=== PATIENT | male | born 1990 | race Caucasian/White ===

== ENCOUNTER 2016-10-11 10:54 | Inpatient (IN) ==
[2016-10-11] MEDS ORDERED: 0.9 % Sodium Chloride 1,000 ML IVC ONE (11:11)
--- NOTE | 2016-10-11 11:15 | Emergency Department Note ---
Disposition Clinical Impression: New onset atrial fibrillation Disposition: Admitted As Inpatient Condition: Good Forms: ED Satisfaction Letter Arrhythmia/Palpitations HPI - General Chief Complaint: ED Arrhythmia/Palpitations Stated Complaint: New onset A-fib Source: patient, family Limitations: no limitations Nursing Notes Reviewed: Yes Vital Signs Reviewed: Yes - History of Present Illness Pt Subjective Complaint: "heart racing" Onset (ago): day(s) (5) Duration: constant Severity: severe Context: occurred during rest Associated symptoms: Reports: denies other symptoms - Related Data Allergies Allergy/AdvReac Type Severity Reaction Status Date / Time No Known Allergies Allergy Verified 10/11/16 11:35 All systems ED: reviewed and negative except as stated. Constitutional: Denies: fever, chills, weakness Cardiovascular: Reports: palpitations Past Medical History - Past Medical History Source: patient, obtained from family, nursing notes reviewed Medical history: Reports: no medical history Psychiatric history: Reports: no psych history - Social History Smoking Status: Never smoker Alcohol use: Reports: occasionally Drug use: Reports: none Physical Exam - General Limitations: no limitations General appearance: alert, in no apparent distress - Head Head exam: atraumatic, normocephalic, normal inspection - Eye Eye exam: Present: normal appearance, PERRL, EOMI - Expanded Eye Exam Pupils: Left: reactive - ENT ENT exam: normal exam, normal oropharynx, mucous membranes moist - Expanded ENT Exam External ear exam: Present: normal external inspection Mouth exam: Present: normal external inspection Teeth exam: Present: normal inspection Throat exam: Present: normal inspection - Neck Neck exam: Present: normal inspection, full ROM, trachea midline - Chest Chest inspection: Present: normal inspection, symmetric chest wall rise - Respiratory Respiratory exam: Present: normal lung sounds bilaterally - Cardiovascular Cardiovascular exam: Present: tachycardia, irregular rhythm - Abdominal Exam Abdominal exam: Present: soft, Non-Tender. Absent: tenderness, distention, guarding, rebound, rigidity - Extremities Exam Extremities exam: Present: normal inspection, full ROM. Absent: tenderness, pedal edema - Expanded Upper Extremity Exam Shoulder exam: Present: normal inspection, full ROM Arm exam: Present: normal inspection, full ROM Elbow exam: Present: normal inspection, full ROM Forearm/Wrist exam: Present: normal inspection, full ROM Hand exam: Present: normal inspection, full ROM Vascular exam: Normal: capillary refill, radial pulse - Expanded Lower Extremity Exam Hip/Pelvis exam: Present: normal inspection, full ROM Upper leg exam: Present: normal inspection, full ROM Knee exam: Present: normal inspection, full ROM Lower leg exam: Present: normal inspection, full ROM Ankle exam: Present: normal inspection, full ROM Foot/toe exam: Present: normal inspection, full ROM Neurovascular/Tendon exam: Absent: motor deficit, sensory deficit, tendon deficit - Back Exam Back exam: Present: normal inspection, full ROM. Absent: tenderness - Neurological Exam Neurological exam: Present: alert, oriented X3 - Expanded Neurological Exam Patient oriented to: Present: person, place, time Coma Scale Eye Opening: Spontaneous Coma Scale Motor Response: Obeys Commands Coma Scale Verbal Response: Oriented Coma Scale Total: 15 - Psychiatric Psychiatric exam: Present: normal affect, normal mood - Skin Skin exam: Present: warm, dry, intact, normal color Course - Consultations Consultation #1: dr. dinh agrees admit cardizem heparin, will consult Time: 12:42 Vital Signs Temperature 98.2 F 10/11/16 11:04 Pulse Rate 170 10/11/16 11:04 Respiratory Rate 16 10/11/16 11:04 Blood Pressure 113/97 10/11/16 11:04 O2 Sat by Pulse Oximetry 98 10/11/16 11:04 Temperature 98.2 F 10/11/16 11:04 Pulse Rate 128 10/11/16 11:32 Respiratory Rate 16 10/11/16 11:32 Blood Pressure 126/68 10/11/16 11:32 O2 Sat by Pulse Oximetry 100 10/11/16 11:32 Oxygen Delivery Oxygen Delivery Room Air Arrhythmia/Palpitations - Differential Diagnosis Differential Diagnosis: Likely: sinus tachycardia, artial arrhythmia, supraventricular tachycardia, ventricular tachycardia, WPW, metabolic/ electrolyte disturbance - Medical Records Medical records reviewed: Yes I reviewed the patient's medical records. - Lab Data Lab results reviewed: Yes I reviewed the patient's lab results. Result diagrams: 10/11/16 11:15 10/11/16 11:15 Lab Results 10/11/16 10/11/16 10/11/16 Range/Units 11:15 11:15 11:15 WBC 7.8 (4.3-11.1) K/mcL RBC 5.31 (4.19-5.50) M/mcL Hgb 15.5 (12.9-16.9) g/dL Hct 46.9 (37.5-50.1) % MCV 88.3 (83.0-100.0) fL MCH 29.2 (28.0-33.3) pg MCHC 33.0 (31.6-35.5) g/dL RDW 12.3 (11.5-14.5) % Plt Count 237 (140-400) K/mcL MPV 9.0 L (9.4-12.4) fL Immature Gran % 0.6 (0-4) % Seg Neutrophils % 68.3 % Lymphocytes % 19.2 % Monocytes % 9.5 % Eosinophils % 1.9 % Basophils % 0.5 % Neutrophils # 5.3 (1.6-8.9) K/mcL Lymphocytes # 1.5 (0.6-4.6) K/mcL Monocytes # 0.7 (0.0-1.3) K/mcL Eosinophils # 0.2 (0.0-0.6) K/mcL Basophils # 0.0 (0.0-0.2) K/mcL PT 11.4 (9.4-12.1) Seconds INR 1.1 APTT 29.8 (26.0-36.0) Seconds D-Dimer (0-500) ng/mLFEU Sodium 139 (136-145) mEq/L Potassium 4.2 (3.5-4.5) mEq/L Chloride 105 (98-109) mEq/L Carbon Dioxide 25 (19-29) mEq/L BUN 12 (8-26) mg/dL Creatinine 0.90 (0.72-1.25) mg/dL Est GFR ( Amer) > 60 (> 60) Est GFR (Non-Af Amer) > 60 (> 60) BUN/Creatinine Ratio 13 (6-26) Glucose 88 (70-99) mg/dL Calculated Osmolality 287 (280-300) Calcium 9.9 (8.6-10.8) mg/dL Magnesium 1.9 (1.6-2.6) mg/dL Troponin I (0-0.03) ng/mL TSH 0.576 (0.350-4.840) mcIU/mL 10/11/16 10/11/16 Range/Units 11:15 11:15 WBC (4.3-11.1) K/mcL RBC (4.19-5.50) M/mcL Hgb (12.9-16.9) g/dL Hct (37.5-50.1) % MCV (83.0-100.0) fL MCH (28.0-33.3) pg MCHC (31.6-35.5) g/dL RDW (11.5-14.5) % Plt Count (140-400) K/mcL MPV (9.4-12.4) fL Immature Gran % (0-4) % Seg Neutrophils % % Lymphocytes % % Monocytes % % Eosinophils % % Basophils % % Neutrophils # (1.6-8.9) K/mcL Lymphocytes # (0.6-4.6) K/mcL Monocytes # (0.0-1.3) K/mcL Eosinophils # (0.0-0.6) K/mcL Basophils # (0.0-0.2) K/mcL PT (9.4-12.1) Seconds INR APTT (26.0-36.0) Seconds D-Dimer < 215 (0-500) ng/mLFEU Sodium (136-145) mEq/L Potassium (3.5-4.5) mEq/L Chloride (98-109) mEq/L Carbon Dioxide (19-29) mEq/L BUN (8-26) mg/dL Creatinine (0.72-1.25) mg/dL Est GFR ( Amer) (> 60) Est GFR (Non-Af Amer) (> 60) BUN/Creatinine Ratio (6-26) Glucose (70-99) mg/dL Calculated Osmolality (280-300) Calcium (8.6-10.8) mg/dL Magnesium (1.6-2.6) mg/dL Troponin I 0.00 (0-0.03) ng/mL TSH (0.350-4.840) mcIU/mL - Radiology Data Radiology results reviewed: Yes I reviewed the patient's radiology results. - EKG Data EKG attestation: Yes I reviewed and interpreted this EKG. Rate: tachycardia Rhythm: A.Fib [place]/QRS: normal Interpretation: nonspecific ST-T wave changes Critical Care Time Critical Care Time: Yes Total Critical Care Time: 35 Attestation: 35 Critical care performed: Time is exclusive of separately billable procedures. Time includes: direct patient care, patient reassessment, coordination of patient care, interpretation of data (laboratory data, radiology data, and respiratory data), review of patient's medical records, medical consultation and documentation of patient care. Procedures included in critical care time: Procedures excluded from critical care time:
[2016-10-11 11:31] LABS: Basophils % 0.5 %; Eosinophils # 0.2 K/mcL (0.0-0.6); Eosinophils % 1.9 %; Hematocrit 46.9 % (37.5-50.1); Hemoglobin 15.5 g/dL (12.9-16.9); Immature Granulocytes % 0.6 % (0-4); Lymphocytes # 1.5 K/mcL (0.6-4.6); Lymphocytes % 19.2 %; Mean Corpuscular Hemoglobin 29.2 pg (28.0-33.3); Mean Corpuscular Volume 88.3 fL (83.0-100.0); Monocytes # 0.7 K/mcL (0.0-1.3); Monocytes % 9.5 %; Neutrophils # 5.3 K/mcL (1.6-8.9); Platelet Count 237 K/mcL (140-400); Red Blood Count 5.31 M/mcL (4.19-5.50); Red Cell Distribution Width 12.3 % (11.5-14.5); Segmented Neutrophils % 68.3 %
[2016-10-11 11:33] LABS: INR 1.1; Prothrombin Time 11.4 Seconds (9.4-12.1)
[2016-10-11 11:36] LABS: Activated Partial Thrombo Time 29.8 Seconds (26.0-36.0)
[2016-10-11 11:44] LABS: BUN/Creatinine Ratio 13 (6-26); Blood Urea Nitrogen 12 mg/dL (8-26); Calcium 9.9 mg/dL (8.6-10.8); Carbon Dioxide 25 mEq/L (19-29); Chloride 105 mEq/L (98-109); Glucose 88 mg/dL (70-99); Magnesium 1.9 mg/dL (1.6-2.6); Osmolality,Calculated 287 (280-300); Potassium 4.2 mEq/L (3.5-4.5); Sodium 139 mEq/L (136-145); eGFR For African Americans > 60 (> 60); eGFR For Non-African Americans > 60 (> 60)
[2016-10-11 12:07] LABS: Thyroid Stimulating Hormone 0.576 mcIU/mL (0.350-4.840)
[2016-10-11] MEDS ORDERED: *HR* Heparin 5,000 UNIT/ML VIAL IVP PRN (12:24)
[2016-10-11] MEDS ORDERED: *HR* Heparin 5,000 UNIT/ML VIAL IVP ONE (12:24)
[2016-10-11] MEDS ORDERED: Aspirin 81 MG TAB.CHEW PO ONE (12:45)
[2016-10-11] MEDS: Heparin 25,000 UNIT/500 ML D5W 25,000 UNIT/500 ML MLS IVC SCH (13:39)
[2016-10-11 14:17] LABS: Bilirubin,Urine Negative (Negative); Blood,Urine Negative (Negative); Clarity,Urine Clear (Clear); Color,Urine Yellow (Yellow); Glucose,Urine (UA) Normal (Normal); Ketones,Urine Negative (Negative); Leukocyte Esterase,Urine Negative (Negative); Nitrite,Urine Negative (Negative); Protein,Urine Negative (Neg-Trace); Specific Gravity,Urine 1.007 (1.010-1.025); Urobilinogen,Urine Normal (Normal)
[2016-10-11 14:22] LABS: Amphetamine Screen,Urine Negative ng/mL (Cutoff=1000); Barbiturate Screen,Urine Negative ng/mL (Cutoff=200); Benzodiazepines Screen,Urine Negative ng/mL (Cutoff=200); Cannabinoid Screen,Urine Negative ng/mL (Cutoff = 50); Cocaine Screen,Urine Negative ng/mL (Cutoff= 300); Opiate Screen,Urine Negative ng/mL (Cutoff=300); Phencyclidine Screen,Urine Negative ng/mL (Cutoff=25)
--- NOTE | 2016-10-11 15:38 | Cardiology Consult Note ---
Date of Encounter: 10/11/16 Time of Encounter: 15:33 Assessment and Plan (1) New onset atrial fibrillation Current Visit: Yes Status: Acute New onset atrial fibrillation. HR up to 183 per documentation. Continue cardizem gtt overnight. If he converts to NSR change to oral cardizem. Check TTE. TSH normal. He is a CHADS VASc=0. Start asa 81 mg daily at discharge. Continue heparin gtt for now. Discussion w patient/family: The assessment and plan as outlined above was discussed with the patient and/or family members who expressed understanding and agreement. All questions were answered. Thank you for involving us in the care of your patient. Please call with any questions. History of Present Illness Consult date: 10/11/16 Requesting physician: Victor Hugo Miramontes Consult reason: new atrial fibrillation Chief complaint: heart racing History of present illness: Mr. Robertson is a 25 year old male with no past medical history who presented with the c/o of his heart racing this morning. He denies associated symptoms. Denies SOB or chest pain. HR as high as 183 documented. He was treated with IV cardizem bolus and started on cardizem gtt. Past Med Surg Social Fam HX - Past Medical History Attestation: Yes The following information was validated with the patient. Medical history: no medical history Psychiatric history: no psych history - Social History Smoking Status: Never smoker Alcohol use: occasionally Drug use: none Medications and Allergies No Known Home Drugs 10/11/16 [History] Allergies No Known Allergies Allergy (Verified 10/11/16 11:35) All Systems Review: A 10-system review of systems was performed and is negative for pertinent findings except as documented above in the HPI. Physical Examination Vital Signs, Last 4 Hours Temp Pulse Resp BP Pulse Ox 10/11/16 14:49 97.6 F 126 16 118/83 98 10/11/16 14:07 18 110/71 10/11/16 13:59 136 18 111/78 99 10/11/16 13:09 139 18 115/89 99 General: Conversant, No Apparent Distress HEENT: Atraumatic, Normocephaly, Mucus Membranes Moist Neck: No JVD, Normal carotid pulses Cardiac: Other (irregularly irregular) Lungs: Normal Breath Sounds, No Wheeze, Rales, Rhonchi Neuro: Alert and responsive, No focal deficits noted Abdomen: Soft, Non-Tender Skin: No rashes noted on visualized skin Musculoskeletal: No Chest Wall Tenderness Extremities: No Clubbing, No Cyanosis, No Edema, Normal Pulses Results 10/11/16 11:15 10/11/16 11:15 - Imaging and Cardiology Chest Xray: report reviewed Echo: pending - EKG Interpretation EKG results cardiology: personally reviewed (atrial fibrillation with RVR, HR 158.) Consult Discharge Plan - Plan Referrals: Yadi Baxter CNP [Primary Care Provider] - 10/21/16 1:00 pm
[2016-10-11] MEDS ORDERED: 0.9 % Sodium Chloride 1,000 ML IV ONE (16:26)
[2016-10-11] MEDS ORDERED: *HR* Metoprolol 5 MG/5 ML VIAL IVP ONE (16:28)
[2016-10-11] MEDS ORDERED: Naloxone 0.4 MG/ML INJ IVP PRN (16:37)
[2016-10-11] MEDS ORDERED: Acetaminophen 325 MG TABLET PO PRN (16:37)
[2016-10-11] MEDS ORDERED: *HR* Metoprolol 5 MG/5 ML VIAL IVP PRN (16:44)
--- NOTE | 2016-10-11 17:07 | Internal Med History&Physical ---
Date of Encounter: 10/11/16 Time of Encounter: 17:02 Assessment and Plan (1) Alcohol use Current visit: Yes Status: Acute I advised complete alcohol cessation as alcohol binging likely contributed to his current episode of atrial fibrillation. (2) New onset atrial fibrillation Current visit: Yes Status: Acute Patient continues to be in atrial fibrillation with rapid ventricular response per telemetry monitoring. Plan: Heart monitor, trend troponin, check thyroid function tests. He was started on Cardizem drip. I will continue with Cardizem at 15 mg per hour and Is at 20 mg per hour. I will also add 2.5 mg of metoprolol for rate control given that with the Cardizem drip his heart rate ranges from 110-150. He was started on anticoagulation with heparin drip. We will continue this. We will switch to eliquis upon discharge. He is at high risk for morbidity and complications due to Cardizem drip which requires close heart monitoring and heparin drip which requires intensive monitoring of blood coagulation parameters. (3) DVT prophylaxis Current visit: Yes Status: Acute Fully anticoagulated with heparin does not require any additional intervention. Internal Medicine - H&P: HPI Chief complaint: Palpitations Admitted From: Emergency Dept Plans for Post Hospital Care: Home History of present illness: Mr. Robertson is a 25 year old male with no significant past medical history who presented to the hospital due to chest pressure and palpitations. He states that palpitations started suddenly on Friday, describes as heart beating fast and irregular in the middle of his chest, with no chest pain no shortness of breath or diaphoresis but he noted that over the last few days he would get lightheaded if he stood up quickly. The symptoms have been constant over the last 5 days. He presented to the emergency department where he was found to be in atrial fibrillation with rapid ventricular response. He was treated with IV Cardizem drip and referred for admission. He states that he drinks alcohol on weekends, last Friday he went kayaking and he had more alcohol than usual and reports that he got intoxicated. A 10 point review of systems was negative except as above. Past medical history: Non- Family history negative for premature coronary artery disease in both parents. Positive for history of breast cancer on the mother's side. social history: Denies tobacco and recreational drug use. Drinks alcohol on weekends. Past Med Surg Social Fam HX - Past Medical History Medical history: no medical history Psychiatric history: no psych history - Social History Smoking Status: Never smoker Alcohol use: occasionally Drug use: none Internal Medicine - H&P: Meds No Known Home Drugs 10/11/16 [History] Allergies No Known Allergies Allergy (Verified 10/11/16 11:35) All Systems PM: A 10-system review of systems was performed and is negative for pertinent findings except as documented above in the HPI. - Constitutional Vitals: Temp Pulse Resp BP Pulse Ox 97.6 F 126 16 118/83 98 10/11/16 14:49 10/11/16 14:49 10/11/16 14:49 10/11/16 14:49 10/11/16 14:49 - Neck Neck exam general surgery: Present: supple, trachea midline. Absent: lymphadenopathy - Respiratory Respiratory exam: Present: CTAB. Absent: accessory muscle use, rales, rhonchi, wheezes - Cardiovascular Cardiovascular exam: Present: irregular rhythm, +S1, +S2. Absent: diastolic murmur, gallop, rubs, systolic murmur - GI/Abdominal GI/Abdominal exam: Present: normal bowel sounds, soft, no peritoneal signs. Absent: distended, tenderness - Extremities Exam Extremities exam: Present: warm, radial pulses palpable and symetrical. Absent : calf tenderness, cyanotic, pedal edema - Neurological Exam Neurological exam: Present: CN II-XII intact, oriented X3, no focal deficits. Absent: pronater drift, facial droop, speech deficit - Skin Skin exam: Present: dry, intact Internal Med - H&P Results - Labs CBC & Chem 7: 10/11/16 11:15 10/11/16 11:15 Labs: Urine 10/11/16 Range/Units 14:02 Urine Color Yellow (Yellow) Urine Clarity Clear (Clear) Urine pH 6.0 (5.0-8.0) pH Units Ur Specific [place] 1.007 L (1.010-1.025) Urine Protein Negative (Neg-Trace) mg/dL Urine Glucose (UA) Normal (Normal) mg/dL - EKG Data EKG comments: 10/11/16 17:08 Telemetry strip reviewed personally reveals atrial fibrillation with rapid ventricular response with rates from 110-150.
[2016-10-11 18:08] LABS: Triiodothyronine (T3) Free 2.97 pg/mL (1.71-3.71)
[2016-10-11] MEDS: *HR* Heparin 5,000 UNIT/ML VIAL IVP PRN (20:41)
[2016-10-12 05:30] LABS: BUN/Creatinine Ratio 14 (6-26); Blood Urea Nitrogen 11 mg/dL (8-26); Calcium 9.2 mg/dL (8.6-10.8); Carbon Dioxide 22 mEq/L (19-29); Chloride 106 mEq/L (98-109); Glucose 88 mg/dL (70-99); Magnesium 1.9 mg/dL (1.6-2.6); Osmolality,Calculated 285 (280-300); Potassium 3.8 mEq/L (3.5-4.5); Sodium 138 mEq/L (136-145); eGFR For African Americans > 60 (> 60); eGFR For Non-African Americans > 60 (> 60)
[2016-10-12] MEDS: *HR* Heparin 5,000 UNIT/ML VIAL IVP PRN (06:44)
[2016-10-12] MEDS ORDERED: Diltiazem CD (24hr) 240 MG CAPSULE PO SCH (10:00)
--- NOTE | 2016-10-12 10:47 | Discharge Summary ---
Date of Encounter: 10/12/16 Time of Encounter: 10:46 - Discharge Diagnosis (1) New onset atrial fibrillation Priority: Primary Status: Acute (2) Alcohol use Priority: Secondary Status: Chronic - Discharge Medications Prescriptions: Diltiazem HCl [Diltiazem ER] 240 mg PO DAILY #30 cap.er.deg Rivaroxaban [Xarelto] 15 mg PO BID #42 tablet Home Medications: Diltiazem HCl [Diltiazem ER] 240 mg PO DAILY #30 cap.er.deg 10/12/16 [Rx] Rivaroxaban [Xarelto] 15 mg PO BID #42 tablet 10/12/16 [Rx] Allergies/Adverse Reactions: Allergies No Known Allergies Allergy (Verified 10/11/16 11:35) Procedures/tests Complete & Pending: Procedures Performed prior 72 hours Category Date Time Status EV echocardiogram Routine Y 10/12/16 09:54 Ordered Date of admission: 10/11/16 16:37 Primary care physician: Yadi Baxter CNP Discharging clinician: Mariano Rincon Anticipated date of discharge: 10/12/16 - Patient Status Disposition: Home, Self-Care Condition: Good Functional capacity at discharge: independent ambulation Overall status at discharge: patient is progressing back to baseline - Discharge Instructions Follow Up With: Yaid Baxter CNP [Primary Care Provider] - 10/21/16 1:00 pm Juanito Arredondo CNP [Advanced Practice Nurse] - (Office will call you with F/U appointment) - Diet and Activity Activity: resume usual activities as tolerated Diet: regular diet Interval History: See below Hospital course: Mr. Robertson is a 25 year old male with no significant past medical history who presented to the hospital due to chest pressure and palpitations. He stated that palpitations started suddenly 5 days prior to presentation and described as heart beating fast and irregular in the middle of his chest, with no chest pain no shortness of breath or diaphoresis but he noted that over the last few days he would get lightheaded if he stood up quickly. In the ER, he was found in Afib with RVR He was started on heparin drip and cardizem drip He was admitted to the floors for further evaluation His electrolyte panel, TSH, CBC, urine toxicology were unremarkable ECHO showed dilated LV with Afib with RVR, no LV thrombus, indeterminate diastolic dysfunction, low normal LVEF Cardiology was consulted and co-managed with hospitalist team Recommendations were po cardizem , and Xarelto for about a month, and follow up in cardiology clinic , patient will be evaluated for possible cardioversion prn His HR has been controlled, he is still in Atrial fibrillation His CHADS score is 0 Patient is clinically stable to be discharged to follow up with cardiology Plan of care discussed, verbalized understanding - Time Spent with Patient Total time spent providing and/or coordinating discharge services: Less than 30 minutes - Constitutional Vitals: Temp Pulse Resp BP Pulse Ox 97.8 F 85 16 126/84 98 10/12/16 02:51 10/12/16 04:25 10/12/16 02:51 10/12/16 02:51 10/12/16 02:51 General appearance: Present: A&O X 3, pleasant, no acute distress - Head Head exam: Present: atraumatic, normocephalic - Eye Eye exam: Present: PERRL, conjuntiva pink, sclera anicteric Pupils: Present: PERRL - Neck Neck exam general surgery: Present: supple, trachea midline. Absent: lymphadenopathy - Respiratory Respiratory exam: Present: CTAB. Absent: accessory muscle use, rales, rhonchi, wheezes - Cardiovascular Cardiovascular exam: Present: irregular rhythm, +S1, +S2. Absent: diastolic murmur, gallop, rubs, systolic murmur - GI/Abdominal GI/Abdominal exam: Present: normal bowel sounds, soft, no peritoneal signs. Absent: distended, tenderness - Extremities Exam Extremities exam: Present: warm, radial pulses palpable and symetrical. Absent : calf tenderness, cyanotic, pedal edema - Neurological Exam Neurological exam: Present: alert, CN II-XII intact, oriented X3, no focal deficits. Absent: pronater drift, facial droop, speech deficit - Skin Skin exam: Present: dry, intact
[2016-10-12] MEDS: Heparin 25,000 UNIT/500 ML D5W 25,000 UNIT/500 ML MLS IVC SCH (11:31)
--- NOTE | 2016-10-12 12:26 | Cardiology Progress Note ---
Date of Encounter: 10/12/16 Time of Encounter: 12:12 Assessment and Plan (1) New onset atrial fibrillation Current Visit: Yes Status: Acute New onset atrial fibrillation. HR up to 183 per documentation. HR now better controlled on cardizem gtt. HR 80-100. Convert to oral cardizem. Plan for anticoagulation for one full month and cardioversion if needed. TTE completed this morning- preliminary, no severe valvular heart disease seen. final results pending. Results can be discussed in out-pt setting. TSH normal. He is a CHADS VASc=0. Anticoagulation for one month with coumadin vs NOAC discussed. Risks, indications, use, and benefits discussed. He is agreeable to Xarelto. If he converts to NSR on his own, ok to stop xarelto and use asa 81 mg daily. Out-pt f/u in the afib clinic will be scheduled in 2 weeks. Discussion w patient/family: The assessment and plan as outlined above was discussed with the patient and/or family members who expressed understanding and agreement. All questions were answered. Thank you for involving us in the care of your patient. Please call with any questions. Subjective Principal diagnosis: Atrial fibrillation new onset. Interval history: Currently denies palpitations. Denies questions. Objective Vital Signs Temp Pulse Resp BP Pulse Ox 10/12/16 04:25 85 10/12/16 02:51 97.8 F 71 16 126/84 98 10/11/16 23:40 92 10/11/16 22:37 98.2 F 104 18 93/63 97 10/11/16 19:35 96 10/11/16 19:09 98.3 F 110 16 102/72 100 10/11/16 18:07 96 10/11/16 17:18 107 16 111/72 98 10/11/16 15:10 128 16 110/83 99 10/11/16 14:49 97.6 F 126 16 118/83 98 10/11/16 14:07 18 110/71 10/11/16 13:59 136 18 111/78 99 10/11/16 13:09 139 18 115/89 99 10/11/16 12:24 123 18 121/76 98 Intake and Output 10/11/16 10/12/16 10/12/16 23:59 07:59 15:59 Intake Total 345 / 345 440 / 440 482 / 482 Output Total 500 / 500 2600 / 2600 Balance -155 / -155 -2160 / -2160 482 / 482 Intake: IV Fluids 225 / 225 240 / 240 242 / 242 Cardizem 125 MG In / 89 118 / 118 Dextrose 5% 100 ML @ 5 MG /HR 5 mls/hr IVC .Q24H [facility] Rx#:[id number] Heparin 25,000 UNIT/500 136 / 136 240 / 240 124 / 124 ML D5W 25,000 unit In 500 ml @ 9.3 UNIT/KG/HR 19. 995 mls/hr IVC .Q24H [facility] Rx#:[id number] Oral 120 / 120 200 / 200 240 / 240 Output: Urine 500 / 500 2600 / 2600 Other: Meal Dinner Breakfast Percent of Meal Consumed 90% 75% # Voids 4 Weight 89.9 kg Patient Weight 10/12/16 23:59 Weight 89.9 kg General: Conversant, No Apparent Distress HEENT: Atraumatic, Normocephaly, Mucus Membranes Moist Neck: No JVD, Normal carotid pulses Cardiac: Other (Irregularly irregular.) Lungs: Normal Breath Sounds, No Wheeze, Rales, Rhonchi Neuro: Alert and responsive, No focal deficits noted Abdomen: Soft, Non-Tender Skin: No rashes noted on visualized skin Musculoskeletal: No Chest Wall Tenderness Extremities: No Clubbing, No Cyanosis, No Edema, Normal Pulses Results 10/11/16 11:15 10/12/16 04:37 Lab Results 10/11/16 10/11/16 10/11/16 16:57 19:28 22:34 APTT 47.0 H D Sodium Potassium Chloride Carbon Dioxide BUN Creatinine Glucose Calcium Magnesium Troponin I 0.00 0.01 10/12/16 10/12/16 04:37 04:37 APTT 56.4 H Sodium 138 Potassium 3.8 Chloride 106 Carbon Dioxide 22 BUN 11 Creatinine 0.81 Glucose 88 Calcium 9.2 Magnesium 1.9 Troponin I - Imaging and Cardiology Echo: pending - EKG Interpretation EKG results cardiology: other (24 hour telemtry review completed.) Consult Discharge Plan - Plan Referrals: Yadi Baxter CNP [Primary Care Provider] - 10/21/16 1:00 pm Juanito Arredondo CNP [Advanced Practice Nurse] - (Office will call you with F/U appointment)
[2016-10-12 12:28] VITALS: BP 107/77
--- NOTE | 2016-10-12 12:43 | Electrocardiograph Report ---
[address] [address] Test Date: 2016-10-11 Pat Name: Jc Robertson Department: 105 Room: 2N01 Gender: M Special Services Director: EFRA : 1990 Requested By: Victor Hugo Miramontes Order Number: [id number] Reading MD: Ashwin Lisa Measurements Intervals [place] Rate: 158 P: PA: 0 QRS: 48 QRSD: 85 T: 32 QT: 256 QTc: 344 Interpretive Statements ATRIAL FIBRILLATION WITH RAPID VENTRICULAR RESPONSE ABNORMAL RHYTHM ECG Electronically Signed On 10-12-2016 12:41:48 EDT by Ashwin Lisa
[2016-10-12] MEDS ORDERED: *HR* Rivaroxaban 10 MG TABLET PO SCH (12:45)
== END 2016-10-12 14:33 | disposition home or self-care (01) | DRG 310 ==
LOC: EMEROO 10:54 → 2NNU 10:54
PROVIDERS: ADMIT Internal Medicine; ATTEND Internal Medicine

== ENCOUNTER 2022-02-01 12:17 | Observation (INO) ==
[2022-02-01] MEDS ORDERED: 0.9 % Sodium Chloride 1,000 ML IVC ONE (12:27)
[2022-02-01] MEDS: DilTIAZem 50 MG/50 ML IV.SOLN IVC SCH ×3 (12:54→21:44)
[2022-02-01 13:03] LABS: Basophils # 0.1 K/mcL (0.0-0.2); Basophils % 0.7 %; Eosinophils # 0.1 K/mcL (0.0-0.6); Eosinophils % 1.6 %; Hematocrit 48.4 % (37.5-50.1); Hemoglobin 16.2 g/dL (12.9-16.9); Immature Granulocytes % 0.3 % (0-4); Lymphocytes % 27.9 %; Mean Corpuscular HGB Conc 33.5 g/dL (31.6-35.5); Mean Corpuscular Hemoglobin 29.8 pg (28.0-33.3); Mean Platelet Volume 9.7 fL (9.4-12.4); Monocytes # 0.9 K/mcL (0.0-1.3); Monocytes % 12.6 %; Platelet Count 290 K/mcL (140-400); Red Blood Count 5.44 M/mcL (4.19-5.50); Red Cell Distribution Width 12.3 % (11.5-14.5); Segmented Neutrophils % 56.9 %
[2022-02-01 13:08] LABS: BUN/Creatinine Ratio 11 (6-26); Blood Urea Nitrogen 12 mg/dL (6-20); Calcium 9.9 mg/dL (8.6-10.3); Carbon Dioxide 24 mEq/L (23-29); Chloride 105 mEq/L (98-107); Glucose 103 mg/dL (70-105); Osmolality,Calculated 286 (280-300); Potassium 3.7 mEq/L (3.5-5.1); Sodium 138 mEq/L (136-145)
[2022-02-01 13:09] LABS: Troponin I < 0.03 ng/mL (< 0.04)
[2022-02-01] MEDS ORDERED: Naloxone 0.4 MG/ML INJ IVP PRN (14:41)
[2022-02-01] MEDS ORDERED: Mag Hydrox/Al Hydrox/Simeth 30 ML UDC PO PRN (14:41)
[2022-02-01] MEDS ORDERED: Ondansetron 4 MG/2 ML VIAL IVP PRN (14:41)
[2022-02-01] MEDS ORDERED: MOM Conc 10 ML UD.LIQ PO PRN (14:41)
[2022-02-01] MEDS ORDERED: Acetaminophen 325 MG TABLET PO PRN (14:47)
[2022-02-02] MEDS: DilTIAZem 50 MG/50 ML IV.SOLN IVC SCH ×6 (02:50→22:50)
[2022-02-02] MEDS: *HR* Rivaroxaban 10 MG TABLET PO SCH (07:43)
[2022-02-02] MEDS: DilTIAZem CD (24hr) 240 MG CAP.ER.24H PO SCH (09:27)
[2022-02-02 09:58] LABS: Hematocrit 46.5 % (37.5-50.1); Hemoglobin 16.1 g/dL (12.9-16.9); Mean Corpuscular HGB Conc 34.6 g/dL (31.6-35.5); Mean Corpuscular Hemoglobin 30.8 pg (28.0-33.3); Mean Corpuscular Volume 88.9 fL (83.0-100.0); Mean Platelet Volume 9.9 fL (9.4-12.4); Platelet Count 275 K/mcL (140-400); Red Blood Count 5.23 M/mcL (4.19-5.50); Red Cell Distribution Width 12.2 % (11.5-14.5); White Blood Count 5.5 K/mcL (4.3-11.1)
[2022-02-02 10:19] LABS: BUN/Creatinine Ratio 10 (6-26); Blood Urea Nitrogen 10 mg/dL (6-20); Calcium 9.8 mg/dL (8.6-10.3); Carbon Dioxide 23 mEq/L (23-29); Chloride 107 mEq/L (98-107); Chol/HDL Ratio 2.9 (0-4.9); Cholesterol 120 mg/dL (< 200); Glucose 122 mg/dL (70-105); HDL Cholesterol 41 mg/dL (40-59); LDL Cholesterol,Calculated 58 mg/dL (< 100); Osmolality,Calculated 286 (280-300); Sodium 138 mEq/L (136-145); Triglycerides 106 mg/dL (< 150)
[2022-02-02] MEDS: carvediloL 6.25 MG TABLET PO SCH (17:33)
[2022-02-03] MEDS: DilTIAZem 50 MG/50 ML IV.SOLN IVC SCH ×5 (03:19→22:41)
[2022-02-03] MEDS: *HR* Rivaroxaban 10 MG TABLET PO SCH (08:27)
[2022-02-03] MEDS: DilTIAZem CD (24hr) 240 MG CAP.ER.24H PO SCH (08:27)
[2022-02-03] MEDS: carvediloL 6.25 MG TABLET PO SCH ×2 (08:27→17:18)
[2022-02-03] MEDS ORDERED: carvediloL 6.25 MG TABLET PO ONE (09:13)
[2022-02-04] MEDS: DilTIAZem 50 MG/50 ML IV.SOLN IVC SCH ×3 (03:02→12:02)
[2022-02-04] MEDS: carvediloL 6.25 MG TABLET PO SCH (07:37)
[2022-02-04] MEDS: DilTIAZem CD (24hr) 240 MG CAP.ER.24H PO SCH (07:37)
[2022-02-04] MEDS: *HR* Rivaroxaban 10 MG TABLET PO SCH (07:37)
[2022-02-04] MEDS ORDERED: hydrOXYzine pamoate 25 MG CAPSULE PO ONE (09:45)
[2022-02-04] MEDS ORDERED: Lidocaine Viscous Oral Soln 15 ML SOLUTION MM PRN (13:18)
[2022-02-04] MEDS ORDERED: 0.9 % Sodium Chloride 500 ML IVC ONE (13:18)
[2022-02-04 13:43] VITALS: BP 125/89; PULSE 132; TEMP 98.7; O2SAT 96
[2022-02-04] MEDS: *HR* FentaNYL (PF) 100 MCG/2 ML VIAL IVP PRN ×5 (13:55→14:15)
[2022-02-04] MEDS: *HR* Midazolam HCl 5 MG/5 ML VIAL IVP PRN ×5 (13:55→14:15)
[2022-02-04] MEDS ORDERED: Metoprolol XL (24 HR) Succ 50 MG TAB.ER.24H PO SCH (21:00)
== END 2022-02-04 18:21 | disposition home or self-care (01) ==
LOC: EMEROOARM 12:17 → 3BNU 12:17
PROVIDERS: ADMIT Internal Medicine; ATTEND Internal Medicine